=== PATIENT | female | born 1995 | race Caucasian/White ===

== ENCOUNTER 2019-10-24 23:09 | Inpatient (IN) ==
[2019-10-24 23:45] LABS: Apearance,Urine CLEAR (Clear); Bilirubin,Urine Negative (Negative); Blood, Urine Negative (Negative); Glucose,Urine (UA) Negative (Negative); Ketones,Urine Negative (Negative); Mucus,Urine Occasional /LPF (Occasional); Nitrite,Urine Negative (Negative); Protein,Urine Negative; Squamous Epithelial Cell,Urine Occasional /HPF (0-10); Urine Color Yellow (Yellow); Urine Specific Gravity 1.016 (1.001-1.035); Urine Urobilinogen < 2.0 EU/DL (0.2-1.0); WBC,Urine 2 /HPF (0-6)
[2019-10-24] MEDS ORDERED: ONDANSETRON 4 MG/2 ML VIAL IV PRN (23:56)
[2019-10-24 23:59] LABS: Basophils % 0.2 % (0.0-0.8); Eosinophils # 0.1 10*3/uL (0.0-0.87); Eosinophils % 1.3 % (0.00-10.9); Hematocrit 33.6 VOL% (35.7-47.0); Hemoglobin 11.3 GM/DL (12.0-16.0); Immature Granulocytes % 0.5 %; Immature Granulocytes Absolute 0.05 #; Lymphocytes # 2.2 10*3/uL (1.4-4.0); Mean Corpuscular HGB Conc 33.6 GM/DL (32-36); Mean Corpuscular Volume 93.3 FL (87-102); Mean Platelet Volume 9.8 FL (9.6-12.0); Monocytes % 7.9 % (1.7-12.7); Neutrophils % 69.1 % (38.7-73.9); Platelet Count 226 T/CUMM (130-400); Red Cell Distribution Width 12.4 % (9.3-17.3); White Blood Count 10.5 T/CUMM (4-12)
[2019-10-25] MEDS ORDERED: hydrOXYzine HCL 25 MG/1 ML VIAL IM PRN
[2019-10-25] MEDS ORDERED: PROMETHAZINE 25 MG/1 ML VIAL IM PRN
[2019-10-25] MEDS ORDERED: diphenhydrAMINE 50 MG/1 ML VIAL IV PRN ×2
[2019-10-25] MEDS ORDERED: LACTATED RINGERS 250 ML IV PRN
[2019-10-25] MEDS ORDERED: NALOXONE 0.4 MG/ML VIAL IV PRN
[2019-10-25 00:11] LABS: Barbiturates Screen,Urine Negative (Negative); Benzodiazepines Screen,Urine Negative (Negative); Cannabinoid Screen,Urine Negative (Negative); Opiate Screen,Urine Negative (Negative); Phencyclidine Screen,Urine Negative (Negative)
[2019-10-25] MEDS: LACTATED RINGERS 1,000 ML IV SCH ×3 (00:13→06:26)
[2019-10-25] MEDS ORDERED: CITRIC ACID/SODIUM CITRATE 30 ML UDCUP ONE (00:17)
[2019-10-25] MEDS ORDERED: ePHEDrine 50 MG/ML AMP ONE (00:18)
[2019-10-25] MEDS ORDERED: FAMOTIDINE 20 MG/2 ML VIAL IV ONE (00:21)
[2019-10-25] MEDS ORDERED: CITRIC ACID/SODIUM CITRATE 30 ML UDCUP PO ONE (00:21)
[2019-10-25 00:25] LABS: Alanine Aminotransferase 12 U/L (13-56); Albumin 2.4 G/DL (3.4-5.0); Alkaline Phosphatase 119 U/L (45-117); Aspartate Amino Transferase 10 U/L (0-37); Bilirubin,Total < 0.39 MG/DL (0.2-1.0); Blood Urea Nitrogen 8 MG/DL (7-18); Calcium 8.7 MG/DL (8.5-10.1); Estimated Glom Filtration Rate 144 ML/MIN; Glucose 79 MG/DL (74-106); Osmolality,Calculated 269.8 MOS/KG (273-304); Total Protein 6.2 G/DL (6.4-8.3)
[2019-10-25] MEDS: fentaNYL 2 MCG/ROPIV 0.2% EPID 100 ML EPIDURAL SCH ×2 (00:46→08:30)
[2019-10-25 02:12] LABS: Apearance,Urine CLEAR (Clear); Bacteria,Urine Occasional /HPF (Few); Bilirubin,Urine Negative (Negative); Blood, Urine Negative (Negative); Glucose,Urine (UA) Negative (Negative); Ketones,Urine 5 mg/dL (Negative); Mucus,Urine Occasional /LPF (Occasional); Nitrite,Urine Negative (Negative); Protein,Urine Negative; RBC,Urine 12 /HPF (0-4); Squamous Epithelial Cell,Urine Occasional /HPF (0-10); Urine Color Yellow (Yellow); Urine Specific Gravity 1.027 (1.001-1.035); Urine Urobilinogen < 2.0 EU/DL (0.2-1.0); WBC,Urine 2 /HPF (0-6)
[2019-10-25] MEDS ORDERED: miSOPROStoL 200 MCG TABLET ONE (06:18)
[2019-10-25] MEDS ORDERED: METHYLERGONOVINE 0.2 MG/1 ML AMP ONE (06:19)
[2019-10-25] MEDS ORDERED: CARBOPROST TROMETHAMINE 250 MCG/ML AMP IM ONE (06:19)
[2019-10-25] MEDS ORDERED: TRANEXAMIC ACID 1,000 MG/10 ML VIAL ONE (06:19)
[2019-10-25] MEDS ORDERED: OXYTOCIN/LR 20 UNIT/1,000 ML BAG IV ONE ×2 (06:19→09:28)
[2019-10-25] MEDS ORDERED: SODIUM CHLORIDE 0.9% 0 ML IV ONE (06:20)
[2019-10-25] MEDS: OXYTOCIN/LR 20 UNIT/1,000 ML BAG IV PRN ×2 (09:09→11:59)
[2019-10-25 09:26] LABS: Cord Arterial Blood HCO3 21.4 MMOL/L
[2019-10-25 09:27] LABS: Cord Venous Blood HCO3 22.4 MMOL/L; Cord Venous Blood PCO2 42.6 MMHG; Cord Venous Blood PO2 27.6 MMHG
[2019-10-25] MEDS ORDERED: WITCH HAZEL PADS 100/JAR TOP PRN (09:28)
[2019-10-25] MEDS ORDERED: BENZOCAINE 20%/MENTHOL 0.5% SPRAY 56 GM CAN TOP PRN (09:28)
[2019-10-25] MEDS ORDERED: oxyCODONE/ACETAMINOPHEN 5-325 MG TABLET PO PRN ×2 (09:28)
[2019-10-25] MEDS ORDERED: LANOLIN 50% CREAM 0.3 OZ TUBE TOP PRN (09:28)
[2019-10-25] MEDS ORDERED: MEASLES/MUMPS/RUBELLA VACCINE 0.5 ML VIAL SUBCUT ONE (09:28)
[2019-10-25] MEDS ORDERED: DIPH/TET/ACEL PERT BOOSTER VACCINE 0.5 ML VIAL IM ONE (09:28)
[2019-10-25] MEDS ORDERED: ACETAMINOPHEN 325 MG TABLET PO PRN (09:28)
[2019-10-25] MEDS ORDERED: RHO(D) IMMUNE GLOBULIN 300 MCG SYRINGE IM ONE (09:28)
[2019-10-25] MEDS ORDERED: BISACODYL 10 MG SUPP RECTAL PRN (09:28)
[2019-10-25] MEDS ORDERED: ONDANSETRON 4 MG/2 ML VIAL IV PRN (09:28)
[2019-10-25] MEDS ORDERED: HYDROCORTISONE 2.5% RECTAL CREAM 30 GM TUBE TOP PRN (09:28)
[2019-10-25] MEDS: IBUPROFEN 800 MG TABLET PO PRN ×2 (11:57→22:11)
[2019-10-25] MEDS: DOCUSATE SODIUM 100 MG CAPSULE PO SCH (20:38)
[2019-10-26 05:16] LABS: Basophils % 0.3 % (0.0-0.8); Eosinophils # 0.3 10*3/uL (0.0-0.87); Eosinophils % 1.9 % (0.00-10.9); Hematocrit 30.5 VOL% (35.7-47.0); Hemoglobin 10.5 GM/DL (12.0-16.0); Immature Granulocytes % 0.4 %; Immature Granulocytes Absolute 0.06 #; Lymphocytes # 2.7 10*3/uL (1.4-4.0); Lymphocytes % 17.6 % (21.3-54.2); Mean Corpuscular HGB Conc 34.4 GM/DL (32-36); Mean Platelet Volume 9.6 FL (9.6-12.0); Monocytes % 7.9 % (1.7-12.7); Neutrophils % 71.9 % (38.7-73.9); Platelet Count 198 T/CUMM (130-400); Red Blood Count 3.28 MC/CUMM (3.8-5.5); Red Cell Distribution Width 12.8 % (9.3-17.3); White Blood Count 15.3 T/CUMM (4-12)
[2019-10-26] MEDS: DOCUSATE SODIUM 100 MG CAPSULE PO SCH ×2 (09:04→21:05)
[2019-10-26] MEDS: IBUPROFEN 800 MG TABLET PO PRN (16:15)
[2019-10-27 08:36] VITALS: BP 98/49
[2019-10-27] MEDS: DOCUSATE SODIUM 100 MG CAPSULE PO SCH (10:31)
== END 2019-10-27 13:05 | disposition home or self-care (01) | DRG 560 ==
LOC: N.LDOUT 23:09 → N.LD 23:11 → N.OB 10-25 13:45
PROVIDERS: ADMIT Obstetrics & Gynecology; ATTEND Obstetrics & Gynecology